=== PATIENT | female | born 1975 | race Caucasian/White ===

== ENCOUNTER 2016-11-30 11:46 | Emergency (ER) | payer MEDICAID ==
[~2016-11-30] VITALS: Ht 162.6 cm; Wt 101.0 kg
[2016-11-30 11:48] VITALS: BP 127/83
[2016-11-30] MEDS ORDERED: INSU100V13 SQ (11:58)
[2016-11-30] MEDS ORDERED: INSU100C5 SQ-INSULIN (11:58)
[2016-11-30] MEDS ORDERED: SODIUM CHLORIDE 0.9% 1,000 ML IV ONE (12:09)
[2016-11-30] MEDS ORDERED: ONDANSETRON 2MG/ML, 2ML IVPush ONE (12:30)
[2016-11-30] MEDS ORDERED: MORPHINE SULFATE 4 MG/ML, 1ML IVPush PRN (12:30)
[2016-11-30 12:48] LABS: BLOOD UREA NITROGEN 8 mg/dL (7-18)
[2016-11-30 12:53] LABS: PATH.CAST-FLAG NOT PRESENT; SPERM-FLAG NOT PRESENT; SRC-FLAG NOT PRESENT; XTAL-FLAG NOT PRESENT; YLC-FLAG NOT PRESENT
== END 2016-11-30 14:36 | disposition home or self-care (01) ==
LOC: ED 14:33
DX: N83.292 Other ovarian cyst, left side (principal); E11.65 Type 2 diabetes mellitus with hyperglycemia
CPT/HCPCS: 36415; 76830; 80048; 81001; 82040; 84702; 85025; 87086

== ENCOUNTER 2017-09-22 15:58 | Emergency (ER) | payer MEDICAID ==
[~2017-09-22] VITALS: Ht 157.5 cm; Wt 100.7 kg
[~2017-09-22 15:58] MED LIST: INSU100C5 SQ-INSULIN; INSU100V13 SQ
[2017-09-22 16:28] LABS: MICROSCOPIC NOT IND
[2017-09-22 16:31] LABS: CULTURE INDICATED? NO
[2017-09-22 17:25] LABS: CLUE CELLS NONE SEEN (NONE SEEN); WET PREP WBCS FEW (FEW)
[2017-09-22] MEDS ORDERED: AZITHROMYCIN 500 MG TABLET PO ONE (17:30)
[2017-09-22] MEDS ORDERED: CEFTRIAXONE 250 MG IM ONE (17:30)
[2017-09-22 18:35] VITALS: BP 139/75
== END 2017-09-22 18:38 | disposition home or self-care (01) ==
LOC: ED 18:05
DX: N76.0 Acute vaginitis (principal); E11.65 Type 2 diabetes mellitus with hyperglycemia
CPT/HCPCS: 81003; 81025; 87210; 87491; 87591; 87808; 99284

== ENCOUNTER 2018-01-27 17:20 | Emergency (ER) | payer MEDICAID ==
[~2018-01-27] VITALS: Ht 154.9 cm; Wt 104.2 kg
[2018-01-27 17:21] VITALS: BP 137/84
[2018-01-27 18:01] LABS: BASOPHILS # (AUTO) 0.03 x10^3/uL (0-0.1); BASOPHILS % (AUTO) 0 % (0-1); EOSINOPHILS # (AUTO) 0.13 x10^3/uL (0-0.4); EOSINOPHILS % (AUTO) 1 % (1-7); LYMPHOCYTES # (AUTO) 2.58 x10^3/uL (1-3.4); LYMPHOCYTES % (AUTO) 24 % (22-44); MD NO; MEAN CORPUSCULAR HEMOGLOBIN 28.5 pg (27.0-34.8); MEAN CORPUSCULAR HGB CONC 33.2 g/dL (32.4-35.8); MEAN PLATELET VOLUME 8.5 fL (7.4-10.4); MONOCYTES # (AUTO) 0.78 x10^3/uL (0.2-0.8); MONOCYTES % (AUTO) 7 % (2-9); NEUTROPHILS # (AUTO) 7.08 x10^3/uL (1.8-6.8); NEUTROPHILS % (AUTO) 67 % (42-75); PLATELET COUNT 430 x10^3/uL (130-400); RED BLOOD COUNT 4.96 x10^6/uL (3.82-5.3); RED CELL DISTRIBUTION WIDTH 14.1 % (9.6-15.2)
[2018-01-27 18:11] LABS: ALANINE AMINOTRANSFERASE 37 U/L (12-78); ALBUMIN 3.1 g/dL (3.4-5.0); ANION GAP 9 mmol/L (5-15); CALCIUM 9.2 mg/dL (8.5-10.1); CHLORIDE 103 mmol/L (98-107); CREATININE 0.83 mg/dL (0.55-1.02)
[2018-01-27 18:15] LABS: ALKALINE PHOSPHATASE 85 U/L (45-117); BILIRUBIN,TOTAL 0.4 mg/dL (0.2-1.0); TOTAL PROTEIN 6.9 g/dL (6.4-8.2); TROPONIN I < 0.015 ng/mL (0.000-0.045)
[2018-01-27 19:39] LABS: MICROSCOPIC NOT IND
[2018-01-27 19:41] LABS: CULTURE INDICATED? NO
== END 2018-01-27 21:03 ==
LOC: ED 18:44
DX: R60.0 Localized edema (principal); J15.9 Unspecified bacterial pneumonia; E11.65 Type 2 diabetes mellitus with hyperglycemia
CPT/HCPCS: 36415; 71045; 80053; 81003; 83880; 84484; 85025; 93005; 99285

== ENCOUNTER 2019-01-09 17:29 | Emergency (ER) | payer MEDICAID ==
[~2019-01-09] VITALS: Ht 157.5 cm; Wt 113.9 kg
--- NOTE | 2019-01-09 17:42 | NUR ---
Pt to room with EDT.
--- NOTE | 2019-01-09 17:50 | NUR ---
Lab at bedside.
--- NOTE | 2019-01-09 17:57 | NUR ---
Dr. Wynne at bedside to evaluate pt.
[2019-01-09] MEDS ORDERED: SODIUM CHLORIDE 0.9% 1,000ML IVBOLUS ONE (18:00)
[2019-01-09] MEDS ORDERED: SODIUM CHLORIDE FLUSH 10ML SYR IVF ONE (18:00)
[2019-01-09] MEDS ORDERED: PLEASE ENTER HEIGHT AND WEIGHT MC SCH (18:00)
--- NOTE | 2019-01-09 18:01 | NUR ---
Pt ambulated to bathroom, no assistance required, for urine sample. Education provided for clean catch urine sample technique.
[2019-01-09 18:02] LABS: BASOPHILS # (AUTO) 0.02 x10^3/uL (0-0.1); BASOPHILS % (AUTO) 0 % (0-1); EOSINOPHILS # (AUTO) 0.15 x10^3/uL (0-0.4); EOSINOPHILS % (AUTO) 2 % (1-7); FIO2 ROOM AIR %; LYMPHOCYTES # (AUTO) 2.11 x10^3/uL (1-3.4); LYMPHOCYTES % (AUTO) 24 % (22-44); MD NO; MEAN CORPUSCULAR HEMOGLOBIN 28.1 pg (27.0-34.8); MEAN CORPUSCULAR HGB CONC 32.5 g/dL (32.4-35.8); MEAN CORPUSCULAR VOLUME 86.6 fL (80-100); MEAN PLATELET VOLUME 8.6 fL (7.4-10.4); MONOCYTES # (AUTO) 0.58 x10^3/uL (0.2-0.8); MONOCYTES % (AUTO) 7 % (2-9); NEUTROPHILS # (AUTO) 5.91 x10^3/uL (1.8-6.8); NEUTROPHILS % (AUTO) 67 % (42-75); PH, VENOUS 7.411 pH (7.320-7.420); PLATELET COUNT 418 x10^3/uL (130-400); RED BLOOD COUNT 5.07 x10^6/uL (3.82-5.3); RED CELL DISTRIBUTION WIDTH 14.1 % (9.6-15.2)
[2019-01-09 18:15] LABS: ALANINE AMINOTRANSFERASE 52 U/L (12-78); ALBUMIN 3.5 g/dL (3.4-5.0); ANION GAP 6 mmol/L (5-15); CALCIUM 9.1 mg/dL (8.5-10.1); CHLORIDE 99 mmol/L (98-107); CREATININE 0.94 mg/dL (0.55-1.02)
[2019-01-09 18:17] LABS: ALKALINE PHOSPHATASE 94 U/L (45-117); BILIRUBIN,TOTAL 0.6 mg/dL (0.2-1.0); TOTAL PROTEIN 7.5 g/dL (6.4-8.2)
--- NOTE | 2019-01-09 18:21 | NUR ---
Urine sample collected and sent to lab.
[2019-01-09 18:30] LABS: MICROSCOPIC AUTO
[2019-01-09 18:31] LABS: CULTURE INDICATED? NO
--- NOTE | 2019-01-09 18:38 | NUR ---
EDT and RN at bedside for IV start.
[2019-01-09 18:44] LABS: HEMOGLOBIN A1C 11.7 % (4.2-6.3)
[2019-01-09 18:49] LABS: ACETONE, SERUM Negative (Negative)
--- NOTE | 2019-01-09 19:06 | NUR ---
This RN called [facility] pharmacy to verify pt's medications. [facility] staff stated the pt is prescribed to 2 medications, demolog and aspirin. Per the staff member, the pt was at the pharmacy on January 02 to strip picker this new medication, but her insurance would not pay for the needles so the pt "got frustrated and left without her medications." This RN will inform pt that those medications are the [facility] pharmacy and have already been paid for and this RN will give the pt information regarding [facility] for obtaining needles.
[2019-01-09] MEDS ORDERED: ASPI-496 PO (19:14)
[2019-01-09] MEDS ORDERED: [UNRECOGNIZED DRUG - OTHER] SC (19:14)
--- NOTE | 2019-01-09 19:25 | NUR ---
Dr. Wynne at bedside to attempt to figure out which medications the pt is in need of refills for. Pt provided a different pharmacy at this time to call and med list was obtained.
[2019-01-09] MEDS ORDERED: INSU100I42 SC (19:31)
[2019-01-09 20:05] VITALS: BP 153/73
--- NOTE | 2019-01-09 20:14 | NUR ---
Patient/Caregiver given discharge instructions and they have confirmed that they understand the instructions. Patient ambulatory with steady gait.
[2019-01-09] MEDS ORDERED: ATOR40TA PO (20:17)
[2019-01-09] MEDS ORDERED: RISP2TAB35 PO (20:17)
[2019-01-09] MEDS ORDERED: INSU100I34 SC (20:17)
[2019-01-09] MEDS ORDERED: METF850T10 PO (20:17)
[2019-01-09] MEDS ORDERED: SERT50TA28 PO (20:17)
[2019-01-09] MEDS ORDERED: LISI5TAB7 PO (20:17)
== END 2019-01-09 20:19 | disposition home or self-care (01) ==
LOC: ED 19:15
DX: E11.40 Type 2 diabetes mellitus with diabetic neuropathy, unspecified (principal); E11.65 Type 2 diabetes mellitus with hyperglycemia; M79.671 Pain in right foot; M79.672 Pain in left foot
CPT/HCPCS: 36415; 80053; 81001; 82010; 82803; 82962; 83036; 85025; 96360; 99283; J7030; 96365

== ENCOUNTER 2019-05-26 12:26 | Emergency (ER) | payer MEDICAID ==
[~2019-05-26] VITALS: Ht 162.6 cm; Wt 105.5 kg
[~2019-05-26 12:26] MED LIST changes: +ASPI-496 PO; +ATOR40TA PO; +INSU100I34 SC; +INSU100I42 SC; +LISI5TAB7 PO; +METF850T10 PO; +RISP2TAB35 PO; +SERT50TA28 PO; +[UNRECOGNIZED DRUG - OTHER] SC
[2019-05-26 12:28] VITALS: BP 128/67
--- NOTE | 2019-05-26 12:52 | NUR ---
intermittent abdominal pain for 2 weeks with back pain. denies nausea
[2019-05-26] MEDS ORDERED: ONDANSETRON 2MG/ML, 2ML IVPush ONE (13:00)
[2019-05-26] MEDS ORDERED: MORPHINE SULFATE 4 MG/ML, 1ML IVPush PRN (13:00)
[2019-05-26] MEDS ORDERED: SODIUM CHLORIDE FLUSH 10ML SYR IVF ONE (13:00)
--- NOTE | 2019-05-26 13:21 | NUR ---
to xray via ja
[2019-05-26 13:55] LABS: BASOPHILS # (AUTO) 0.04 x10^3/uL (0-0.1); BASOPHILS % (AUTO) 1 % (0-1); EOSINOPHILS # (AUTO) 0.11 x10^3/uL (0-0.4); EOSINOPHILS % (AUTO) 1 % (1-7); LYMPHOCYTES # (AUTO) 2.01 x10^3/uL (1-3.4); LYMPHOCYTES % (AUTO) 24 % (22-44); MD NO; MEAN CORPUSCULAR HEMOGLOBIN 28.2 pg (27.0-34.8); MEAN CORPUSCULAR HGB CONC 32.5 g/dL (32.4-35.8); MEAN CORPUSCULAR VOLUME 86.6 fL (80-100); MEAN PLATELET VOLUME 9.4 fL (7.4-10.4); MONOCYTES # (AUTO) 0.56 x10^3/uL (0.2-0.8); MONOCYTES % (AUTO) 7 % (2-9); NEUTROPHILS # (AUTO) 5.77 x10^3/uL (1.8-6.8); NEUTROPHILS % (AUTO) 68 % (42-75); PLATELET COUNT 402 x10^3/uL (130-400); RED BLOOD COUNT 5.26 x10^6/uL (3.82-5.3); RED CELL DISTRIBUTION WIDTH 14.3 % (9.6-15.2)
[2019-05-26 13:56] LABS: MICROSCOPIC INDICATED
[2019-05-26 14:03] LABS: ALANINE AMINOTRANSFERASE 65 U/L (12-78); ALBUMIN 3.3 g/dL (3.4-5.0); ANION GAP 9 mmol/L (5-15); CHLORIDE 103 mmol/L (98-107); CREATININE 0.86 mg/dL (0.55-1.02)
[2019-05-26 14:08] LABS: ALKALINE PHOSPHATASE 123 U/L (45-117); BILIRUBIN,TOTAL 0.9 mg/dL (0.2-1.0); TOTAL PROTEIN 7.3 g/dL (6.4-8.2)
[2019-05-26 14:13] LABS: CULTURE INDICATED? YES
[2019-05-26] MEDS ORDERED: MORPHINE SULFATE 4 MG/ML, 1ML ONE (14:26)
[2019-05-26] MEDS ORDERED: ONDANSETRON 2MG/ML, 2ML ONE (14:26)
== END 2019-05-26 14:42 | disposition home or self-care (01) ==
LOC: ED 14:36
DX: N30.00 Acute cystitis without hematuria (principal); K59.00 Constipation, unspecified; E10.65 Type 1 diabetes mellitus with hyperglycemia
CPT/HCPCS: 36415; 74021; 80053; 81001; 83690; 84703; 85025; 87086; 99284

== ENCOUNTER 2019-06-15 01:41 | Emergency (ER) | payer MEDICAID ==
[~2019-06-15] VITALS: Ht 162.6 cm; Wt 106.6 kg
[2019-06-15 02:18] LABS: BASOPHILS # (AUTO) 0.04 x10^3/uL (0-0.1); BASOPHILS % (AUTO) 0 % (0-1); EOSINOPHILS # (AUTO) 0.35 x10^3/uL (0-0.4); EOSINOPHILS % (AUTO) 3 % (1-7); LYMPHOCYTES # (AUTO) 2.25 x10^3/uL (1-3.4); LYMPHOCYTES % (AUTO) 19 % (22-44); MD NO; MEAN CORPUSCULAR HGB CONC 32.8 g/dL (32.4-35.8); MEAN CORPUSCULAR VOLUME 85.5 fL (80-100); MEAN PLATELET VOLUME 8.5 fL (7.4-10.4); MONOCYTES # (AUTO) 0.84 x10^3/uL (0.2-0.8); MONOCYTES % (AUTO) 7 % (2-9); NEUTROPHILS # (AUTO) 8.22 x10^3/uL (1.8-6.8); NEUTROPHILS % (AUTO) 70 % (42-75); PLATELET COUNT 382 x10^3/uL (130-400); RED BLOOD COUNT 4.92 x10^6/uL (3.82-5.3); RED CELL DISTRIBUTION WIDTH 13.6 % (9.6-15.2)
[2019-06-15 02:30] LABS: ALBUMIN 3.2 g/dL (3.4-5.0); ANION GAP 7 mmol/L (5-15); CALCIUM 8.7 mg/dL (8.5-10.1); CHLORIDE 103 mmol/L (98-107)
[2019-06-15] MEDS ORDERED: SODIUM CHLORIDE FLUSH 10ML SYR IVF ONE (02:30)
[2019-06-15] MEDS ORDERED: MORPHINE SULFATE 4 MG/ML, 1ML IVPush PRN (02:30)
[2019-06-15 02:35] LABS: ALANINE AMINOTRANSFERASE 47 U/L (12-78); ALKALINE PHOSPHATASE 104 U/L (45-117); BILIRUBIN,TOTAL 0.6 mg/dL (0.2-1.0); CREATININE 0.85 mg/dL (0.55-1.02); TOTAL PROTEIN 7.1 g/dL (6.4-8.2)
[2019-06-15] MEDS ORDERED: MORPHINE SULFATE 4 MG/ML, 1ML ONE (02:37)
[2019-06-15 02:50] LABS: MICROSCOPIC NOT IND
[2019-06-15 02:53] LABS: CULTURE INDICATED? NO
[2019-06-15 04:01] VITALS: BP 128/69
--- NOTE | 2019-06-15 04:02 | NUR ---
PT REPORT PAIN HAS IMPROVED TO 2/10
== END 2019-06-15 04:22 | disposition home or self-care (01) ==
LOC: ED 04:16
DX: K80.20 Calculus of gallbladder without cholecystitis without obstruction (principal); R10.13 Epigastric pain; E11.40 Type 2 diabetes mellitus with diabetic neuropathy, unspecified; E11.65 Type 2 diabetes mellitus with hyperglycemia
CPT/HCPCS: 36415; 76700; 80053; 81003; 83690; 84703; 85025; 93005; 96374; 99284; J2270

== ENCOUNTER 2019-06-16 21:54 | Inpatient (IN) | payer MEDICAID ==
[~2019-06-16] VITALS: Ht 162.6 cm; Wt 110.3 kg
--- NOTE | 2019-06-16 22:14 | NUR ---
Received report from EMS, was informed patient had abdominal pain. Was informed patient was here approximately 24 hours prior and was diagnosed with known gallstones. Patient presenting with symptoms consistent with known diagnoses.
[2019-06-16] MEDS ORDERED: SODIUM CHLORIDE 0.9% 1,000 ML IV ONE (22:18)
[2019-06-16] MEDS ORDERED: SODIUM CHLORIDE FLUSH 10ML SYR IVF ONE (22:30)
[2019-06-16] MEDS ORDERED: ONDANSETRON 2MG/ML, 2ML IVPush ONE (22:30)
[2019-06-16] MEDS ORDERED: HYDROmorphone 2 MG/ML, 1ML IVPush PRN (22:30)
[2019-06-16 23:04] LABS: BASOPHILS # (AUTO) 0.05 x10^3/uL (0-0.1); BASOPHILS % (AUTO) 0 % (0-1); EOSINOPHILS # (AUTO) 0.28 x10^3/uL (0-0.4); EOSINOPHILS % (AUTO) 2 % (1-7); LYMPHOCYTES # (AUTO) 2.22 x10^3/uL (1-3.4); LYMPHOCYTES % (AUTO) 17 % (22-44); MD NO; MEAN CORPUSCULAR HEMOGLOBIN 28.4 pg (27.0-34.8); MEAN CORPUSCULAR HGB CONC 32.7 g/dL (32.4-35.8); MEAN CORPUSCULAR VOLUME 86.7 fL (80-100); MEAN PLATELET VOLUME 8.8 fL (7.4-10.4); MONOCYTES # (AUTO) 0.89 x10^3/uL (0.2-0.8); MONOCYTES % (AUTO) 7 % (2-9); NEUTROPHILS # (AUTO) 9.63 x10^3/uL (1.8-6.8); NEUTROPHILS % (AUTO) 74 % (42-75); PLATELET COUNT 416 x10^3/uL (130-400); RED BLOOD COUNT 4.85 x10^6/uL (3.82-5.3)
[2019-06-16 23:06] LABS: ALANINE AMINOTRANSFERASE 49 U/L (12-78); ALBUMIN 3.2 g/dL (3.4-5.0); ANION GAP 6 mmol/L (5-15); CALCIUM 9.6 mg/dL (8.5-10.1); CHLORIDE 100 mmol/L (98-107); CREATININE 0.77 mg/dL (0.55-1.02)
[2019-06-16 23:11] LABS: ALKALINE PHOSPHATASE 109 U/L (45-117); BILIRUBIN,TOTAL 0.6 mg/dL (0.2-1.0); TOTAL PROTEIN 7.2 g/dL (6.4-8.2)
--- NOTE | 2019-06-16 23:11 | NUR ---
RN to bedside to start IV at 2250, patient needing to go to the bathroom, provided with urine sample cup for an ordered urine sample. Half hour later RN returned to bedside, patient still not back to start iv and medicate.
[2019-06-16] MEDS ORDERED: HYDROmorphone 1 MG/ML, 1ML VIAL ONE (23:32)
[2019-06-16] MEDS ORDERED: ONDANSETRON 2MG/ML, 2ML ONE (23:32)
--- NOTE | 2019-06-17 00:09 | NUR ---
RN returned to bedside, iv started per protocol, administered medications and fluids per provider order. Awaiting urinary results and ultrasound imaging read. Patient verbalized understanding. Vital sign stable
[2019-06-17] MEDS ORDERED: CEFOTETAN PMX 1GM/50ML 50 ML IV ONE (01:00)
[2019-06-17] MEDS ORDERED: CEFOTETAN PMX 1GM/50ML 50 ML ONE (01:36)
[2019-06-17 02:13] VITALS: BP 140/83
[2019-06-17] MEDS ORDERED: ONDANSETRON 2MG/ML, 2ML IVPush PRN (03:00)
[2019-06-17] MEDS ORDERED: morphine SULFATE 10 MG/ML, 1ML IVPush PRN (03:00)
[2019-06-17] MEDS ORDERED: PROMETHAZINE 25 MG/ML, 1ML IM PRN (03:00)
[2019-06-17] MEDS ORDERED: OXYcodone IR 5MG TABLET PO PRN (03:00)
[2019-06-17] MEDS ORDERED: ONDANSETRON ODT 4 MG PO PRN (03:00)
[2019-06-17] MEDS ORDERED: DOCUSATE 100 MG CAPSULE PO PRN (03:00)
[2019-06-17] MEDS ORDERED: POLYETHYLENE GLYCOL 17 GM PACKET PO PRN (03:00)
[2019-06-17] MEDS ORDERED: BISACODYL 10 MG SUPP PR PRN (03:00)
[2019-06-17] MEDS ORDERED: hydrALAzine 20 MG/ML, 1ML IVPush PRN (03:00)
[2019-06-17] MEDS: SODIUM CHLORIDE 0.9% 1,000 ML IV SCH ×2 (03:07→11:28)
[2019-06-17] MEDS: CEFTRIAXONE PMX 2GM/50ML 50 ML IV SCH (03:08)
[2019-06-17 03:20] LABS: HEMOGLOBIN A1C 12.2 % (4.2-6.3)
[2019-06-17 03:34] LABS: FREE T4 (FREE THYROXINE) 1.22 ng/dL (0.76-1.46)
[2019-06-17] MEDS: METRONIDAZOLE PMX 500MG/100ML 100 ML IV SCH ×3 (04:03→21:10)
[2019-06-17] MEDS ORDERED: GLUCAGON 1 MG IM PRN (06:30)
[2019-06-17] MEDS ORDERED: DEXTROSE 4 GM TAB.CHEW PO PRN (06:30)
[2019-06-17] MEDS ORDERED: DEXTROSE 50%, 50ML SYRINGE IVPush PRN (06:30)
[2019-06-17] MEDS ORDERED: INSULIN LISPRO 100 UNITS/ML, PEN SQ-INSULIN SCH (07:00)
[2019-06-17 08:00] VITALS: BP 119/78
[2019-06-17] MEDS: SODIUM CHLORIDE FLUSH 10ML SYR IVF SCH ×2 (09:00→21:21)
[2019-06-17] MEDS: INSULIN LISPRO 100 UNITS/ML, PEN SQ-INSULIN SCH ×4 (09:40→21:20)
[2019-06-17] MEDS: LISINOPRIL 5 MG TABLET PO SCH (09:40)
[2019-06-17] MEDS: SERTRALINE 50MG TABLET PO SCH (09:40)
[2019-06-17] MEDS ORDERED: MAGNESIUM SULFATE PMX 2GM/50ML 50 ML IV ONE (10:00)
[2019-06-17 13:52] VITALS: BP 122/73
[2019-06-17 19:21] VITALS: BP 143/83
[2019-06-17] MEDS: ATORVASTATIN 40 MG TABLET PO SCH (21:10)
[2019-06-18 01:06] VITALS: BP 111/68
[2019-06-18] MEDS: CEFTRIAXONE PMX 2GM/50ML 50 ML IV SCH (03:06)
[2019-06-18] MEDS: METRONIDAZOLE PMX 500MG/100ML 100 ML IV SCH (04:47)
[2019-06-18 06:14] VITALS: BP 129/76
[2019-06-18 06:18] LABS: BASOPHILS # (AUTO) 0.04 x10^3/uL (0-0.1); BASOPHILS % (AUTO) 1 % (0-1); EOSINOPHILS # (AUTO) 0.21 x10^3/uL (0-0.4); EOSINOPHILS % (AUTO) 3 % (1-7); LYMPHOCYTES # (AUTO) 2.15 x10^3/uL (1-3.4); LYMPHOCYTES % (AUTO) 25 % (22-44); MD NO; MEAN CORPUSCULAR HEMOGLOBIN 28.3 pg (27.0-34.8); MEAN CORPUSCULAR HGB CONC 32.4 g/dL (32.4-35.8); MEAN CORPUSCULAR VOLUME 87.2 fL (80-100); MEAN PLATELET VOLUME 8.7 fL (7.4-10.4); MONOCYTES # (AUTO) 0.66 x10^3/uL (0.2-0.8); MONOCYTES % (AUTO) 8 % (2-9); NEUTROPHILS # (AUTO) 5.45 x10^3/uL (1.8-6.8); NEUTROPHILS % (AUTO) 64 % (42-75); PLATELET COUNT 392 x10^3/uL (130-400); RED BLOOD COUNT 4.93 x10^6/uL (3.82-5.3); RED CELL DISTRIBUTION WIDTH 14.1 % (9.6-15.2)
[2019-06-18 06:19] LABS: CALCIUM 8.5 mg/dL (8.5-10.1); CHLORIDE 106 mmol/L (98-107)
[2019-06-18 06:25] LABS: ALANINE AMINOTRANSFERASE 52 U/L (12-78); ALKALINE PHOSPHATASE 103 U/L (45-117); ANION GAP 6 mmol/L (5-15); BILIRUBIN,TOTAL 0.7 mg/dL (0.2-1.0); CHOL/HDL RATIO 2.7; CHOLESTEROL, TOTAL 117 mg/dL (140-239); CREATININE 0.56 mg/dL (0.55-1.02); HDL CHOL % 38 % (28-40); HDL CHOLESTEROL (DIRECT) 44 mg/dL (40-60); LDL CHOLESTEROL,CALCULATED 53 mg/dL (54-169); LDL/HDL RATIO 1.2 (0.5-3.0); TOTAL PROTEIN 6.8 g/dL (6.4-8.2); TRIGLYCERIDES 98 mg/dL (50-200); VLDL CHOLESTEROL 20 mg/dL (0-25)
[2019-06-18] MEDS ORDERED: EPINEPHRINE 1 MG/ML, 1ML ONE (06:48)
[2019-06-18] MEDS ORDERED: BUPIVACAINE/PF 0.5% ONE (06:48)
[2019-06-18] MEDS: SERTRALINE 50MG TABLET PO SCH (08:18)
[2019-06-18] MEDS: INSULIN LISPRO 100 UNITS/ML, PEN SQ-INSULIN SCH ×4 (08:19→21:12)
[2019-06-18] MEDS: SODIUM CHLORIDE FLUSH 10ML SYR IVF SCH ×2 (08:21→21:12)
[2019-06-18] MEDS: LISINOPRIL 5 MG TABLET PO SCH (08:21)
[2019-06-18] MEDS ORDERED: MIDAZOLAM 1 MG/ML, 2ML ONE (10:49)
[2019-06-18] MEDS ORDERED: FENTANYL PF 250 MCG/5ML ONE (10:50)
[2019-06-18] MEDS ORDERED: MEPERIDINE/PF 25MG/ML,1ML IVPush PRN (12:00)
[2019-06-18] MEDS ORDERED: OXYcodone 5 MG/5 ML ORAL.SOL UDC PO PRN (12:00)
[2019-06-18] MEDS ORDERED: FENTANYL PF 100 MCG/2ML IV PRN (12:00)
[2019-06-18] MEDS ORDERED: HYDROmorphone 2 MG/ML, 1ML IVPush PRN (12:00)
[2019-06-18] MEDS ORDERED: ACETAMINOPHEN 325 MG TABLET PO PRN (12:00)
[2019-06-18] MEDS ORDERED: hydrALAzine 20 MG/ML, 1ML IV PRN (12:00)
[2019-06-18] MEDS ORDERED: PROMETHAZINE 25 MG/ML, 1ML IV PRN (12:00)
[2019-06-18] MEDS ORDERED: INSULIN REGULAR 100 UNITS/ML, 3ML VIAL SQ-INSULIN SCH (12:00)
[2019-06-18] MEDS ORDERED: SUGAMMADEX 200 MG/2 ML IVPush ONE (12:04)
[2019-06-18] MEDS ORDERED: PROPOFOL 10 MG/ML, 20ML ONE (13:55)
[2019-06-18] MEDS ORDERED: ONDANSETRON 2MG/ML, 2ML ONE (13:55)
[2019-06-18] MEDS ORDERED: ROCURONIUM 10 MG/ML,10ML ONE (13:55)
[2019-06-18] MEDS ORDERED: DEXAMETHASONE 4 MG/ML, 1ML ONE (13:55)
[2019-06-18] MEDS ORDERED: KETOROLAC 30 MG/1 ML ONE (13:55)
[2019-06-18 14:46] VITALS: BP 124/81
[2019-06-18 19:49] VITALS: BP 174/100
[2019-06-18 19:52] VITALS: BP 161/97
[2019-06-18] MEDS: ATORVASTATIN 40 MG TABLET PO SCH (21:12)
[2019-06-19 01:07] VITALS: BP 121/80
[2019-06-19 06:49] VITALS: BP 127/79
[2019-06-19] MEDS: INSULIN GLARGINE 100 UNITS/ML, PEN SQ-INSULIN SCH ×2 (09:00→10:28)
[2019-06-19] MEDS: SODIUM CHLORIDE FLUSH 10ML SYR IVF SCH ×2 (09:00→20:38)
[2019-06-19 09:18] LABS: BASOPHILS % (AUTO) 1 % (0-1); EOSINOPHILS # (AUTO) 0.02 x10^3/uL (0-0.4); EOSINOPHILS % (AUTO) 0 % (1-7); HEMOGRAM NOTE RECHECKED; LYMPHOCYTES # (AUTO) 2.06 x10^3/uL (1-3.4); LYMPHOCYTES % (AUTO) 16 % (22-44); MD NO; MEAN CORPUSCULAR HEMOGLOBIN 28.1 pg (27.0-34.8); MEAN CORPUSCULAR HGB CONC 32.2 g/dL (32.4-35.8); MEAN CORPUSCULAR VOLUME 87.3 fL (80-100); MEAN PLATELET VOLUME 8.3 fL (7.4-10.4); MONOCYTES # (AUTO) 0.73 x10^3/uL (0.2-0.8); MONOCYTES % (AUTO) 6 % (2-9); NEUTROPHILS # (AUTO) 9.99 x10^3/uL (1.8-6.8); NEUTROPHILS % (AUTO) 78 % (42-75); PLATELET COUNT 438 x10^3/uL (130-400); RED BLOOD COUNT 5.13 x10^6/uL (3.82-5.3); RED CELL DISTRIBUTION WIDTH 13.9 % (9.6-15.2)
[2019-06-19 09:23] LABS: ALANINE AMINOTRANSFERASE 67 U/L (12-78); ALBUMIN 3.1 g/dL (3.4-5.0); ANION GAP 8 mmol/L (5-15); CHLORIDE 107 mmol/L (98-107); CREATININE 0.62 mg/dL (0.55-1.02)
[2019-06-19 09:26] LABS: ALKALINE PHOSPHATASE 115 U/L (45-117); BILIRUBIN,TOTAL 1.1 mg/dL (0.2-1.0); TOTAL PROTEIN 7.1 g/dL (6.4-8.2)
[2019-06-19] MEDS: INSULIN LISPRO 100 UNITS/ML, PEN SQ-INSULIN SCH ×4 (10:27→20:38)
[2019-06-19] MEDS: SERTRALINE 50MG TABLET PO SCH (10:27)
[2019-06-19] MEDS: LISINOPRIL 5 MG TABLET PO SCH (10:27)
[2019-06-19 13:15] VITALS: BP 135/85
[2019-06-19] MEDS: ACETAMINOPHEN 325 MG TABLET PO PRN ×2 (16:49→21:29)
[2019-06-19 18:28] VITALS: BP 122/81
[2019-06-19] MEDS: ATORVASTATIN 40 MG TABLET PO SCH (20:37)
[2019-06-19] MEDS ORDERED: INSULIN GLARGINE 100 UNITS/ML, PEN SQ-INSULIN SCH (21:00)
[2019-06-20 05:10] VITALS: BP 130/89
[2019-06-20 05:42] LABS: BASOPHILS # (AUTO) 0.06 x10^3/uL (0-0.1); BASOPHILS % (AUTO) 1 % (0-1); EOSINOPHILS # (AUTO) 0.26 x10^3/uL (0-0.4); EOSINOPHILS % (AUTO) 3 % (1-7); LYMPHOCYTES # (AUTO) 3.23 x10^3/uL (1-3.4); LYMPHOCYTES % (AUTO) 32 % (22-44); MD NO; MEAN CORPUSCULAR HEMOGLOBIN 28.4 pg (27.0-34.8); MEAN CORPUSCULAR HGB CONC 32.5 g/dL (32.4-35.8); MEAN CORPUSCULAR VOLUME 87.3 fL (80-100); MEAN PLATELET VOLUME 8.7 fL (7.4-10.4); MONOCYTES % (AUTO) 7 % (2-9); NEUTROPHILS % (AUTO) 59 % (42-75); PLATELET COUNT 402 x10^3/uL (130-400); RED BLOOD COUNT 4.96 x10^6/uL (3.82-5.3); RED CELL DISTRIBUTION WIDTH 14.1 % (9.6-15.2)
[2019-06-20 05:50] LABS: CHLORIDE 107 mmol/L (98-107)
[2019-06-20 05:57] LABS: ALANINE AMINOTRANSFERASE 68 U/L (12-78); ALKALINE PHOSPHATASE 103 U/L (45-117); ANION GAP 6 mmol/L (5-15); BILIRUBIN,TOTAL 1.1 mg/dL (0.2-1.0); CALCIUM 8.6 mg/dL (8.5-10.1); CREATININE 0.63 mg/dL (0.55-1.02); TOTAL PROTEIN 6.7 g/dL (6.4-8.2)
[2019-06-20] MEDS: LISINOPRIL 5 MG TABLET PO SCH (08:40)
[2019-06-20] MEDS: SODIUM CHLORIDE FLUSH 10ML SYR IVF SCH (08:40)
[2019-06-20] MEDS: SERTRALINE 50MG TABLET PO SCH (08:40)
[2019-06-20] MEDS: INSULIN LISPRO 100 UNITS/ML, PEN SQ-INSULIN SCH ×2 (08:47→11:30)
[2019-06-20] MEDS ORDERED: INSULIN GLARGINE 100 UNITS/ML, PEN SQ-INSULIN SCH (09:00)
[2019-06-20 09:59] VITALS: BP 119/73
[2019-06-20] MEDS: ACETAMINOPHEN 325 MG TABLET PO PRN (11:30)
== END 2019-06-20 13:50 | disposition left against medical advice (07) | DRG 418 ==
LOC: ED 06-17 00:48 → EDIP 06-17 00:53 → ED 06-17 01:04 → 3N 06-17 02:11
PROVIDERS: ADMIT Internal Medicine; ATTEND Hospitalist
PROC: 0FT44ZZ Resection of Gallbladder, Percutaneous Endoscopic Approach (ICD-10-PCS; principal; 2019-06-18 12:00)
DX: K80.00 Calculus of gallbladder with acute cholecystitis without obstruction (principal); Z68.41 Body mass index [BMI] 40.0-44.9, adult; E11.9 Type 2 diabetes mellitus without complications; E66.9 Obesity, unspecified; Z71.3 Dietary counseling and surveillance; E78.5 Hyperlipidemia, unspecified; F32.9 Major depressive disorder, single episode, unspecified; I10 Essential (primary) hypertension; Z83.3 Family history of diabetes mellitus; Z53.29 Procedure and treatment not carried out because of patient's decision for other reasons
CPT/HCPCS: 36415; 96374; 96375; 99285; S0020; 76700; 80053; 80061; 82947; 82962; 83036; 83690; 83735; 84100; 84439; 84443; 84703; 85025; 88304; 93005; G0378; J0171; J0696; J1100; J1170; J1885; J2250; J2405; J2704; J3010; J1815; J3475; J3490; J7030

== ENCOUNTER 2019-06-23 17:51 | Emergency (ER) ==
[~2019-06-23] VITALS: Ht 162.6 cm; Wt 107.2 kg
--- NOTE | 2019-06-23 18:30 | NUR ---
PT BACK TO ROOM
--- NOTE | 2019-06-23 18:48 | NUR ---
PT ARRIVES TO ED S/P GALLSTONE REMOVAL SURGERY. PT REPROTS SHE HAS PAIN AT SURGICAL INCESION SITES AND RECIEVED NO PAIN MEDICATION TO GO HOME WITH FROM SURGEON. PT DENIES FEVER OR CHILLS. PTS SURGICAL SITES A RE HEALING WELL NO REDNESS AND SURGICAL GLUE IS INTACT. PTS SURGICAL STAB SITES ARE TENDER TO TOUCH. PT RESTING IN BED AND AWAITING FURTHER ORDERS.
--- NOTE | 2019-06-23 18:57 | NUR ---
REPORT TO MARAL ADKINS
[2019-06-23 18:58] VITALS: BP 134/66
[2019-06-23] MEDS ORDERED: insulin lantus (19:01)
--- NOTE | 2019-06-23 19:01 | NUR ---
report from LUCILLE Villanueva. vss. no needs expressed. call light within reach. awaiting orders.
== END 2019-06-23 19:38 | disposition home or self-care (01) ==
LOC: ED 19:32
DX: R10.84 Generalized abdominal pain (principal); G89.18 Other acute postprocedural pain; E11.9 Type 2 diabetes mellitus without complications; Z90.49 Acquired absence of other specified parts of digestive tract
CPT/HCPCS: 99283